=== PATIENT | male | born 1970 | race African-American/Black ===

== ENCOUNTER 2020-03-18 02:12 | Emergency (ER) | payer OTHER ==
[~2020-03-18] VITALS: Ht 175.3 cm; Wt 122.0 kg
[2020-03-18] MEDS ORDERED: PERCOCET 5-3251 EACH PO (04:59)
[2020-03-18] MEDS ORDERED: SYNJARDY XR 101 EACH PO (05:11)
[2020-03-18 05:12] VITALS: BP 129/87
== END 2020-03-18 05:28 | disposition home or self-care (01) ==
LOC: ER 02:12
DX: S76.112A Strain of left quadriceps muscle, fascia and tendon, initial encounter (principal); E11.9 Type 2 diabetes mellitus without complications; X50.1XXA Overexertion from prolonged static or awkward postures, initial encounter; Y93.89 Activity, other specified; Y92.89 Other specified places as the place of occurrence of the external cause; Y99.8 Other external cause status